=== PATIENT | female | born 1945 | race Caucasian/White ===

== ENCOUNTER 2017-01-14 10:47 | Emergency (ER) | payer MEDICARE, OTHER ==
--- NOTE | 2017-01-14 12:46 | ED Physician Documentation ---
PD HPI URI - Stated complaint Stated Complaint: COUGH AND SINUS - Chief complaint Chief Complaint: Heent - History obtained from History obtained from: Patient - History of Present Illness Timing - onset: Other (This is a 71-year-old woman on maintenance chemotherapy for stage IV breast cancer who for the last 5 or 4 days has had dry cough, a lot of sinus pressure and significant facial pain although declines pain medication. No fevers.) Review of Systems Constitutional: denies: Fever, Chills Eyes: denies: Loss of vision, Decreased vision Ears: denies: Ear pain Nose: reports: Rhinorrhea / runny nose, Congestion, Sinus pressure / pain Throat: denies: Sore throat Respiratory: reports: Cough. denies: Dyspnea GI: denies: Abdominal Pain PD PAST MEDICAL HISTORY - Past Medical History Past Medical History: Yes - Present Medications Home Medications: Ambulatory Orders Medication Instructions Recorded Confirmed Anastrozole [Anastrozole] 0 mg 01/14/17 Azithromycin [Zithromax] 250 mg PO DAILY #6 tablet 01/14/17 Hydrochlorothiazide 25 mg PO 01/14/17 01/14/17 Mometasone Furoate [Nasonex] 1 spray NS BID #1 spray.pump 01/14/17 Sulindac 150 mg PO 01/14/17 guaiFENesin/CODEINE [Robitussin AC] 5 - 10 ml PO Q6H PRN #120 ml 01/14/17 - Allergies Allergies/Adverse Reactions: Allergies Allergy/AdvReac Type Severity Reaction Status Date / Time Sulfa (Sulfonamide Allergy Unknown Verified 01/14/17 11:06 Antibiotics) - Social History Does the pt smoke?: No Smoking Status: Never smoker - Immunizations Immunizations are current?: Yes PD ED PE NORMAL - Vitals Vital signs reviewed: Yes - General General: Alert and oriented X 3, No acute distress - HEENT HEENT: PERRL, EOMI, Ears normal, Moist mucous membranes, Pharynx benign, Other ( Tenderness of both maxillary sinuses.) - Neck Neck: Supple, no meningeal sign, No bony TTP - Cardiac Cardiac: RRR, No murmur - Respiratory Respiratory: No respiratory distress, Clear bilaterally - Abdomen Abdomen: Non tender, Non distended - Derm Derm: No rash - Neuro Neuro: Alert and oriented X 3, Normal speech - Psych Psych: Normal mood, Normal affect Results - Vitals Vitals: Vital Signs - 24 hr 01/14/17 11:03 Temperature 36.5 C Heart Rate 94 Respiratory 18 Rate Blood Pressure 136/84 H O2 Saturation 99 Oxygen O2 Source Room air PD MEDICAL DECISION MAKING - ED course ED course: The patient was counseled as to the diagnosis and need for follow-up. I counseled the patient with regard to signs and symptoms that would necessitate an urgent reevaluation in the emergency department. They understand they are welcome to return at any time if worse or if not improving as expected. This document was made in part using voice recognition software. While efforts are made to proofread this documents, sound alike and grammatical errors may occur. Departure - Departure Disposition: Home, Self Care Clinical Impression: Maintenance chemotherapy following disease Sinusitis Qualifiers: Sinusitis location: maxillary Chronicity: acute Recurrence: recurrent Qualified Code(s): J01.01 - Acute recurrent maxillary sinusitis Condition: Good Record reviewed to determine appropriate education?: Yes Instructions: ED Sinusitis Abx Tx Prescriptions: Mometasone Furoate [Nasonex] 1 spray NS BID #1 spray.pump guaiFENesin/CODEINE [Robitussin AC] 5 - 10 ml PO Q6H PRN #120 ml PRN Reason: Cough Azithromycin [Zithromax] 250 mg PO DAILY #6 tablet Comments: Call your doctor to arrange a follow-up appointment, make the next available appointment. In the interim, return anytime if worse or if new symptoms develop. Your blood pressure was elevated today on check into the emergency department. This does not mean that you have hypertension, it is a common phenomenon to come to the emergency department and have elevated blood pressure. I recommend that she see your primary care physician within the week to have it rechecked when you are feeling better.
[2017-01-14 12:57] VITALS: BP 131/86
== END 2017-01-14 12:57 | disposition home or self-care (01) ==
LOC: ED 10:47
DX: J01.01 Acute recurrent maxillary sinusitis (principal); C50.919 Malignant neoplasm of unspecified site of unspecified female breast; Z92.21 Personal history of antineoplastic chemotherapy
CPT/HCPCS: 99283